=== PATIENT | female | born 1985 | race Two or more races ===

== ENCOUNTER 2017-09-28 06:42 | Emergency (ER) | payer OTHER ==
--- NOTE | 2017-09-28 07:59 | EDPHY ---
HPI/HX/ROS/PE/MDM Narrative: CHIEF COMPLAINT: Coughing, chills HISTORY OF PRESENT ILLNESS: This patient is a 32 year old female complaining of cough, chills, and body aches. About two weeks ago, she began feeing poorly with headache, chills, body aches, and anxiety. She endorses a dry cough in the mornings. These symptoms have occurred intermittently for two weeks, with days of feeling well. She has felt febrile. Today around 5:00am she woke with racing heart, difficulty breathing, chill, body pains, and nausea. She vomited once this morning. She endorses chest pain when she coughs. She has history of disc herniation and her back pain is increased when her symptoms are more severe. The patient has taken DayQuil for symptom relief. She has had diarrhea frequently over the last 1-2 years and this is unchanged with her current symptoms. The patient denies personal history of blood clots. Family history positive for clots in her father and grandfather. LMP three weeks ago. She does not take contraceptives. She travelled 3.5 months ago to [place], but denies other recent international or prolonged travel. No shortness of breath, palpitations, urinary complaints, rash , lightheadedness. REVIEW OF SYSTEMS: Aside from elements discussed in the HPI, a comprehensive 10-point review of systems was reviewed and is negative. PAST MEDICAL HISTORY: Denies. SOCIAL HISTORY: Originally from [place]. , at bedside. Occasional tobacco use. Drinks one glass of wine daily. VITAL SIGNS: Reviewed by me GENERAL: Well-developed, well-nourished, resting comfortably in no respiratory distress. HEENT: Atraumatic. Eyes: No icterus, no injection. Mouth: moist mucous membranes. No erythema or lesions. Neck: supple with no adenopathy. No meningismus. Negative Kernig's. Negative Brudzinski's. LUNGS: Clear to auscultation bilaterally, no wheezes, rhonchi or rales. No chest wall tenderness. No crepitus. CARDIAC: Regular rate and rhythm, no rubs, murmurs or gallops. ABDOMEN: Mild right upper quadrant discomfort. Soft, nondistended, bowel sounds normal. BACK: Mild left flank discomfort. EXTREMITIES: No trauma. No edema. Range of motion is normal throughout. NEURO: Alert and oriented, grossly nonfocal. SKIN: Warm and dry, no rash. PSYCHIATRIC: Normal mentation, no agitation. Portions of this note were transcribed by a medical staff coordinator. I personally performed a history, physical exam, medical decision making, and confirmed accuracy of information the transcribed note. ED Course: 32 year old female presents with two week history of intermittent cough, chills , and body aches. Plan for chest x-ray, labs including CBC, chemistries, liver, UA, blood cultures, lactic acid. Plan to administer albuterol nebulizer for symptom relief. WBC elevated at 19,000. Flu swab negative. CXR negative for pneumonia. UA positive for elevated WBCs but 2+ epithelial cells present. Plan for repeat UA. Repeat UA negative for UTI. 10:[address] Arguelles, infectious disease specialist. Plan for additional labs including malaria PCR, respiratory pathogen PCR and GI pathogen PCR if patient can provide a stool sample. 11:30 Reassessed patient. She complains of mild neck pain, but has no other symptoms or signs suggestive of meningitis. She declines malaria test at this time. She will take a stool sample kit home with her. Plan to discharge home in good condition with referral to infectious disease. Prescription for azithromycin and albuterol MDI provided. Follow up and return precautions discussed. She is comfortable with this plan. MDM: Differential diagnosis for fever in adults was considered including but not limited to pneumonia, urinary tract infection, viral syndrome, infectious diarrhea, bronchitis, pulmonary infection, malaria, typhoid, C difficile, Giardia, and influenza. - Data Points Imaging Results: Imaging Impressions Chest X-Ray 09/28/17 08:04 Impression: 1. Mild bronchitis/airways disease. 2. No definite focal pneumonia. Imaging: I viewed and interpreted images myself Laboratory Results: Laboratory Results 09/28/17 08:45 09/28/17 08:45 09/28/17 09/28/17 09/28/17 09:55 08:45 08:45 WBC RBC Hgb Hct MCV MCH MCHC RDW Plt Count MPV Neut % (Auto) Lymph % (Auto) [place] % (Auto) Eos % (Auto) Baso % (Auto) Nucleat RBC Rel Count Absolute Neuts (auto) Absolute Lymphs (auto) Absolute Monos (auto) Absolute Eos (auto) Absolute Basos (auto) Absolute Nucleated RBC Immature Gran % Immature Gran # VBG Lactic Acid Sodium 141 mEq/L mEq/L (135-145) Potassium 4.2 mEq/L mEq/L (3.5-5.2) Chloride 104 mEq/L mEq/L (97-110) Carbon Dioxide 23 mEq/l mEq/l (22-31) Anion Gap 14 mEq/L mEq/L (8-16) BUN 11 mg/dL mg/dL (7-23) Creatinine 0.5 mg/dL L mg/dL (0.6-1.0) Estimated GFR > 60 Glucose 84 mg/dL mg/dL (70-100) Calcium 9.2 mg/dL mg/dL (8.5-10.4) Total Bilirubin 0.7 mg/dL mg/dL (0.1-1.4) Conjugated Bilirubin 0.3 mg/dL mg/dL (0.0-0.5) Unconjugated Bilirubin 0.4 mg/dL mg/dL (0.0-1.1) AST 22 IU/L IU/L (14-46) ALT 25 IU/L IU/L (9-52) Alkaline Phosphatase 53 IU/L IU/L (38-126) Total Protein 7.2 g/dL g/dL (6.3-8.2) Albumin 4.1 g/dL g/dL (3.5-5.0) Beta HCG, Qual Urine Color YELLOW Urine Appearance CLEAR Urine pH 6.0 (5.0-7.5) Ur Specific [place] 1.012 (1.002-1.030) Urine Protein NEGATIVE (NEGATIVE) Urine Ketones 1+ H (NEGATIVE) Urine Blood NEGATIVE (NEGATIVE) Urine Nitrate NEGATIVE (NEGATIVE) Urine Bilirubin NEGATIVE (NEGATIVE) Urine Urobilinogen NEGATIVE EU EU (0.2-1.0) Ur Leukocyte Esterase NEGATIVE (NEGATIVE) Urine RBC 1-3 /hpf /hpf (0-3) Urine WBC 1-3 /hpf /hpf (0-3) Ur Epithelial Cells TRACE /lpf /lpf (NONE-1+) Urine Bacteria Urine Mucus Urine Glucose NEGATIVE (NEGATIVE) Nasal Influenza A PCR Nasal Influenza B PCR Malaria Smear NONE SEEN (NONE SEEN) Malaria Sm Path Review Pending 09/28/17 09/28/17 09/28/17 08:45 08:40 08:40 WBC 19.67 10^3/uL H 10^3/uL (3.80-9.50) RBC 4.37 10^6/uL 10^6/uL (4.18-5.33) Hgb 13.7 g/dL g/dL (12.6-16.3) Hct 40.1 % % (38.0-47.0) MCV 91.8 fL fL (81.5-99.8) MCH 31.4 pg pg (27.9-34.1) MCHC 34.2 g/dL g/dL (32.4-36.7) RDW 12.3 % % (11.5-15.2) Plt Count 277 10^3/uL 10^3/uL (150-400) MPV 10.1 fL fL (8.7-11.7) Neut % (Auto) 92.3 % H % (39.3-74.2) Lymph % (Auto) 3.7 % L % (15.0-45.0) [place] % (Auto) 2.7 % L % (4.5-13.0) Eos % (Auto) 0.3 % L % (0.6-7.6) Baso % (Auto) 0.3 % % (0.3-1.7) Nucleat RBC Rel Count 0.0 % % (0.0-0.2) Absolute Neuts (auto) 18.17 10^3/uL H 10^3/uL (1.70-6.50) Absolute Lymphs (auto) 0.73 10^3/uL L 10^3/uL (1.00-3.00) Absolute Monos (auto) 0.53 10^3/uL 10^3/uL (0.30-0.80) Absolute Eos (auto) 0.05 10^3/uL 10^3/uL (0.03-0.40) Absolute Basos (auto) 0.06 10^3/uL 10^3/uL (0.02-0.10) Absolute Nucleated RBC 0.00 10^3/uL 10^3/uL (0-0.01) Immature Gran % 0.7 % % (0.0-1.1) Immature Gran # 0.13 10^3/uL H 10^3/uL (0.00-0.10) VBG Lactic Acid 1.4 mmol/L mmol/L (0.7-2.1) Sodium Potassium Chloride Carbon Dioxide Anion Gap BUN Creatinine Estimated GFR Glucose Calcium Total Bilirubin Conjugated Bilirubin Unconjugated Bilirubin AST ALT Alkaline Phosphatase Total Protein Albumin Beta HCG, Qual NEGATIVE Urine Color Urine Appearance Urine pH Ur Specific [place] Urine Protein Urine Ketones Urine Blood Urine Nitrate Urine Bilirubin Urine Urobilinogen Ur Leukocyte Esterase Urine RBC Urine WBC Ur Epithelial Cells Urine Bacteria Urine Mucus Urine Glucose Nasal Influenza A PCR Nasal Influenza B PCR Malaria Smear Malaria Sm Path Review 09/28/17 09/28/17 08:20 06:52 WBC RBC Hgb Hct MCV MCH MCHC RDW Plt Count MPV Neut % (Auto) Lymph % (Auto) [place] % (Auto) Eos % (Auto) Baso % (Auto) Nucleat RBC Rel Count Absolute Neuts (auto) Absolute Lymphs (auto) Absolute Monos (auto) Absolute Eos (auto) Absolute Basos (auto) Absolute Nucleated RBC Immature Gran % Immature Gran # VBG Lactic Acid Sodium Potassium Chloride Carbon Dioxide Anion Gap BUN Creatinine Estimated GFR Glucose Calcium Total Bilirubin Conjugated Bilirubin Unconjugated Bilirubin AST ALT Alkaline Phosphatase Total Protein Albumin Beta HCG, Qual Urine Color YELLOW Urine Appearance HAZY Urine pH 5.0 (5.0-7.5) Ur Specific [place] 1.017 (1.002-1.030) Urine Protein NEGATIVE (NEGATIVE) Urine Ketones NEGATIVE (NEGATIVE) Urine Blood NEGATIVE (NEGATIVE) Urine Nitrate NEGATIVE (NEGATIVE) Urine Bilirubin NEGATIVE (NEGATIVE) Urine Urobilinogen NEGATIVE EU EU (0.2-1.0) Ur Leukocyte Esterase 2+ H (NEGATIVE) Urine RBC 1-3 /hpf /hpf (0-3) Urine WBC 25-50 /hpf H /hpf (0-3) Ur Epithelial Cells 2+ /lpf H /lpf (NONE-1+) Urine Bacteria TRACE /hpf H /hpf (NONE SEEN) Urine Mucus TRACE /lpf /lpf (NONE-1+) Urine Glucose NEGATIVE (NEGATIVE) Nasal Influenza A PCR NEGATIVE FOR FLU A (NEGATIVE) Nasal Influenza B PCR NEGATIVE FOR FLU B (NEGATIVE) Malaria Smear Malaria Sm Path Review Medications Given: Discontinued Medications Albuterol (Proventil Neb) 3 ml IH EDNOW ONE Stop: 09/28/17 08:06 Last Admin: 09/28/17 08:49 Dose: 3 ml Sodium Chloride (Ns) 1,000 mls @ 0 mls/hr IV ONCE ONE; Wide Open PRN Reason: Protocol Stop: 09/28/17 08:05 Last Admin: 09/28/17 08:48 Dose: 1,000 mls Microbiology Results: MICROBIOLOGY 09/28/17 06:52 Nasal, Sinus - Swab Respiratory Panel (PCR) - Final No Organism Detected General Time Seen by Provider: 09/28/17 07:50 Initial Vital Signs: Initial Vital Signs Temperature (C) 36.9 C 09/28/17 06:45 Heart Rate 104 H 09/28/17 06:45 Respiratory Rate 17 09/28/17 06:45 Blood Pressure 104/59 L 09/28/17 06:45 O2 Sat (%) 95 09/28/17 06:45 O2 Delivery Mode Room Air Allergies/Adverse Reactions: No Known Allergies Allergy (Unverified 09/28/17 06:50) Home Medications: Medication Instructions Recorded Albuterol Hfa Anes Only [Proair 2 puffs IH QID #1 mdi 09/28/17 Hfa Anes Only] Albuterol [Proventil Neb] 3 ml IH Q4 PRN #20 deyvial 09/28/17 Azithromycin [Zithromax] 250 mg PO DAILY #6 tab 09/28/17 Departure - Departure Disposition: Home, Routine, Self-Care Clinical Impression: Malaise, R/o infection Condition: Good Instructions: Additional Information, Albuterol (By breathing), Azithromycin ( By mouth) Additional Instructions: 1. Follow up with Dr. Arguelles, infectious disease specialist. 2. Take Tylenol or ibuprofen as directed below as needed for fever or pain. Take Azithromycin as prescribed. Use your albuterol inhaler as directed. 3. Return to the emergency department for fever, chest pain, shortness of breath , uncontrollable vomiting or diarrhea, or other worsening of condition. 4. Use stool kit to provide a sample as directed. Adult Pain & Fever Control: We recommend Acetaminophen (Tylenol) and Ibuprofen (Motrin,Advil) for pain and fever control. When fever is high or pain severe, both drugs can be used at the same time, but at different intervals. Please note the time differences. Your dose is: Acetaminophen 650mg every 4 to 6 hours Ibuprofen 400mg every 6-8 hours with food Note: do not take Acetaminophen with Hydrocodone (Vicodin, Lortab) or Oxycodone (Percocet). These medications also contain Acetaminophen. No more than 3000mg of Acetaminophen should be taken in 24 hours (for an adult). Referrals: LISBET RODRIGUEZ [Primary Care Provider] - As per Instructions Vladimir Arguelles MD [Medical Doctor] - As per Instructions Prescriptions: Albuterol [Proventil Neb] 3 ml IH Q4 PRN #20 deyvial PRN Reason: cough, wheezing Albuterol Hfa Anes Only [Proair Hfa Anes Only] 2 puffs IH QID #1 mdi Azithromycin [Zithromax] 250 mg PO DAILY #6 tab Report Scribed for: Yoli James Report Scribed by: Jalyn Leo Date of Report: 09/28/17 Time of Report: 08:01
[2017-09-28] MEDS ORDERED: NS 1,000 ML IV ONE (08:04)
[2017-09-28] MEDS ORDERED: ALBUTEROL 3 ML DEYVIAL IH ONE (08:05)
[2017-09-28 09:01] LABS: PLATELET COUNT 277 10^3/uL (150-400)
[2017-09-28 12:18] VITALS: BP 105/67
[2017-09-28 13:51] LABS: MALARIAL PREP NONE SEEN (NONE SEEN)
== END 2017-09-28 12:22 | disposition home or self-care (01) ==
DX: R53.81 Other malaise (principal); E86.9 Volume depletion, unspecified
CPT/HCPCS: J7613

== ENCOUNTER → 2018-05-06 | Outpatient (CLI) | payer OTHER | LOC: FIMAGING 12:09 | PROVIDERS: ATTEND Nurse Practitioner Women's Health | DX: N63.11 Unspecified lump in the right breast, upper outer quadrant (principal) ==